=== PATIENT | female | born 1990 | race Caucasian/White ===

== ENCOUNTER 2019-10-04 13:26 | Emergency (ER) | payer OTHER, SELFPAY ==
[2019-10-04 13:38] VITALS: BP 125/72; PULSE 95; RESP 18; TEMP 37.1; O2SAT 99
--- NOTE | 2019-10-04 13:44 | ED.URI ---
HPI - URI/Sore Throat General Chief Complaint: Upper Respiratory Infection Stated Complaint: cm/chills/sore throat/body aches Time Seen by Provider: 10/04/19 13:45 Source: patient and RN notes reviewed History of Present Illness HPI Narrative: Patient is a 29-year-old female that presents the urgent care with complaints of headache, chills, sore throat, body aches. Patient states the sore throat started on Thursday and she woke up last night with severe chills and body aches. Patient states that she is taken 1 dose of DayQuil. Denies any nausea or vomiting. Denies any known contact with strep or flu. Patient is requesting to be tested for both influenza and strep. No other acute complaints. No acute distress noted. Patient read the plan of care. Related Data Home Medications Medication Instructions Recorded Confirmed levonorgestrel [Mirena] 1 device INTRAUTERINE ONCE 10/04/19 10/04/19 Allergies Allergy/AdvReac Type Severity Reaction Status Date / Time No Known Allergies Allergy Verified 10/04/19 13:45 Review of Systems Review of Systems: Narrative: CONSTITUTIONAL: Reports of chills EYES: Denies visual changes, redness, or discharge. ENT: Reports of sore throat CARDIOVASCULAR: Denies chest pain, palpitations, or edema. RESPIRATORY: Denies cough or dyspnea. GASTROINTESTINAL: Denies abdominal pain, nausea, vomiting, or diarrhea. GENITOURINARY: Denies dysuria or hematuria. SKIN: Denies rash or itching. MUSCULOSKELETAL: Denies back pain, joint pain; reports of body aches NEUROLOGIC: Denies headache, numbness, or weakness. All other systems reviewed are negative, except as documented in HPI. PMFSH Comments At the time of my signature, I reviewed and agree with the nursing past medical, surgical, social, and family history. There is no relevant family history pertinent to the patient complaint. Exam Narrative: Exam Narrative: GENERAL: This is a well-nourished, well-developed patient, in no apparent distress. HEAD: normocephalic, atraumatic. EYES: PERRL. Sclera clear/white. Vision is grossly intact. EARS: External ears normal, auditory canals clear and without drainage, bilateral cerumen noted, TMs normal without perforation. Hearing grossly intact. NOSE: External nose normal with no obvious nasal discharge, nares without redness, no rhinorrhea. THROAT: Mucous membranes moist, posterior pharynx clear. Mild postnasal drainage NECK: Neck supple, non-tender without lymphadenopathy, masses or thyromegaly. CARDIOVASCULAR: Regular rate and rhythm without murmurs, gallops, or rubs. RESPIRATORY: Clear to auscultation. Breath sounds equal bilaterally. No wheezes, rales, or rhonchi. SKIN: warm, intact with no suspicious lesions or rash, good texture and turgor. NEURO: awake, alert, and oriented to person, place and time. There were no obvious focal neurologic abnormalities. EXTREMITIES: No clubbing, cyanosis, or edema. Course Vital Signs Vital signs: Vital Signs Temperature 98.8 F 10/04/19 13:38 Pulse Rate 95 10/04/19 13:38 Respiratory Rate 18 10/04/19 13:38 Blood Pressure 125/72 10/04/19 13:38 Pulse Oximetry 99 10/04/19 13:38 Temperature 98.8 F 10/04/19 13:38 Pulse Rate 95 10/04/19 13:38 Respiratory Rate 18 10/04/19 13:38 Blood Pressure 125/72 10/04/19 13:38 Pulse Oximetry 99 10/04/19 13:38 Reviewed MDM - URI/Sore Throat MDM Narrative Medical decision making narrative: Reviewed lab results with the patient. She is aware that flu swab was negative. Aware that strep swab was negative. Educated patient on culture and will call within 72 hours if culture is positive and antibiotics are necessary. Advised the patient to treat symptoms with [id number]-[id number] medication such as Tylenol, ibuprofen, Claritin, Flonase. Increase water intake and rest. Use humidifier at night. Follow-up with PCP within 2 to 5 days or for worsening symptoms or failure to improve. Differential Diagnosis Differe
== END 2019-10-04 14:16 | disposition home or self-care (01) ==
PROVIDERS: Emergency Provider Nurse Practitioner Family; PCP Internal Medicine
DX: J06.9 Acute upper respiratory infection, unspecified (principal)
CPT/HCPCS: 87081; 87804; 87880; 99203; G0463

== ENCOUNTER 2021-03-10 16:50 | Emergency (ER) | payer OTHER, SELFPAY ==
--- NOTE | 2021-03-10 16:58 | ED.EAR ---
HPI - Ear Problem General Chief complaint: Ear Stated complaint: Ear History of Present Illness HPI Narrative: This is a 30 year comes in complaining of feeling fluid in her ear and some pain that is intermittent. Patient states that she had some occasional dizziness but denied it at this moment States that she has this fullness and onset of increased pain today Related Data Home Medications Medication Instructions Recorded Confirmed levonorgestrel [Mirena] 1 device INTRAUTERINE ONCE 10/04/19 03/10/21 Allergies Allergy/AdvReac Type Severity Reaction Status Date / Time No Known Allergies Allergy Verified 03/10/21 16:57 Review of Systems Review of Systems: Narrative: CONSTITUTIONAL: Denies fever, chills, or sweats. EYES: Denies visual changes, redness, or discharge. ENT: Denies rhinorrhea, congestion, sore throat, or reports otalgia. CARDIOVASCULAR:Denies chest pain, palpitations, or edema. RESPIRATORY: Denies cough or dyspnea. GASTROINTESTINAL: Denies abdominal pain, nausea, vomiting, or diarrhea. GENITOURINARY: Denies dysuria or hematuria. SKIN:[Denies rash or itching. MUSCULOSKELETAL:Denies back pain, joint pain, or myalgia. NEUROLOGIC: Denies headache, numbness, or weakness. PSYCHIATRIC:Denies anxiety or depression PMFSH Social History Social History Gender identity (if verbalized by the patient): Female Comments At time as signature, I have reviewed and agree with nursing past medical, social, surgical and family history. Please see nursing chart for further information. There is no relevant family history pertinent to the presenting complaint. Exam Narrative: Exam Narrative: GENERAL:Well-appearing, well-nourished, and in no acute distress. HEAD:Normocephalic, atraumatic. EYES: PERRLA and EOMI. ENT: Nares clear, no rhinorrhea or epistaxis. Mucous membranes moist.cerumen in bilateral ear with removal on right slight tm erythema of which i was able to see. NECK: Supple. CHEST: Clear to auscultation. No respiratory distress. HEART: Regular rate and rhythm. No murmur heard. Normal peripheral pulses. ABDOMEN: Soft, nontender, nondistended, normal active bowel sounds. EXTREMITIES: Normal range of motion. No edema. SKIN: Warm, dry, no rash. NEURO: No focal deficits. Alert and oriented x3. Procedures Ear Wax Removal Right Ear: Ear Wax Removal Date: 03/10/21 Ear Wax Removal Time: 17:17 Results: Re-examined: some cerumen remains TM Examination: TM(s) erythematous Ear Canal Exam: bleeding Noted Patient Tolerated Procedure: well Complications: no problems Technique: ear canal curetted Additional Comments: small amount of blood noted not currently bleeding removed as much as I could patient tolerated well she had already been placing drops in her ear. she was having some dizziness noted prior to coming in and feeling like she had fluid inside. Discharge Plan Discharge Clinical Impression: Otitis media Qualifiers: Otitis media type: unspecified Chronicity: acute Qualified Code(s): H66.90 - Otitis media, unspecified, unspecified ear Cerumen impaction Qualifiers: Laterality: bilateral Qualified Code(s): H61.23 - Impacted cerumen, bilateral Patient Disposition: Home, Self-Care Condition: Stable Instructions: Antibiotic Form, Ear Infection (GEN) Additional Instructions: avoid getting water in your ears for the next few days monitor for drainage Take all medication as directed Prescriptions: New amoxicillin 500 mg capsule 500 mg PO Q12H 7 Days Qty: 14 RF: 0 Zyrtec 10 mg capsule 10 mg PO DAILY PRN (Reason: allergy symptoms) Qty: 30 RF: 0 No Action Mirena 20 mcg/24 hours (5 yrs) 52 mg Intrauterine Device 1 device INTRAUTERINE ONCE RF: 0 Follow-up/Referrals: PHYSICIAN,PRODUCT TRAINER [Primary Care Provider] - Time of Disposition: 17:22
[2021-03-10 17:01] VITALS: BP 117/85; PULSE 67; RESP 18; TEMP 37.2; O2SAT 100
== END 2021-03-10 17:26 | disposition home or self-care (01) ==
PROVIDERS: Emergency Provider Nurse Practitioner Family
DX: H66.91 Otitis media, unspecified, right ear (principal); H61.23 Impacted cerumen, bilateral
CPT/HCPCS: 69210; 99213; G0463

== ENCOUNTER 2021-10-08 17:00 | Emergency (ER) | payer OTHER, SELFPAY ==
[2021-10-08 17:11] VITALS: BP 126/86; PULSE 66; RESP 18; TEMP 36.7; O2SAT 100
--- NOTE | 2021-10-08 17:33 | ED.EAR ---
HPI - Ear Problem General Chief complaint: Ear Stated complaint: Rt Ear Pain Time Seen by Provider: 10/08/21 17:25 Source: patient, family and RN notes reviewed Mode of arrival: ambulatory Limitations: no limitations History of Present Illness HPI Narrative: 31-year-old female who presents to [facility] with complaints of right ear pain for the past 2 days with also complaints of decreased hearing bilaterally. Patient reports she has had problems with earwax in the past and has had to have them cleansed at the doctor's office. Patient denies any shortness of breath, denies any nasal congestion or drainage, no fevers chills or sweats no body aches. Patient has had Covid vaccinations, no Booster, has not had Flu shot. MD Complaint: ear pain and decreased hearing Location: right ear Duration: constant Discharge from ear: Reports no Treatment prior to arrival: oral analgesic Related Data Home Medications Medication Instructions Recorded Confirmed levonorgestrel [Mirena] 1 device INTRAUTERINE ONCE 10/04/19 10/08/21 Allergies Allergy/AdvReac Type Severity Reaction Status Date / Time No Known Allergies Allergy Verified 10/08/21 17:18 Review of Systems Review of Systems: CONSTITUTIONAL: Denies fever, chills, or sweats. EYES: Denies visual changes, redness, or discharge. ENT: Denies rhinorrhea, congestion, sore throat, positive for right ear otalgia. CARDIOVASCULAR: Denies chest pain, palpitations, or edema. RESPIRATORY: Denies cough or dyspnea. GASTROINTESTINAL: Denies abdominal pain, nausea, vomiting, or diarrhea. GENITOURINARY: Denies dysuria or hematuria. SKIN: Denies rash or itching. MUSCULOSKELETAL: Denies back pain, joint pain, or myalgia. NEUROLOGIC: Denies headache, numbness, or weakness. PSYCHIATRIC: Denies anxiety or depression. All systems reviewed & are unremarkable except as noted in HPI and below PMFSH Past Medical History Medical History (Updated 10/08/21 @ 17:51 by Terri Riley NP) No pertinent past medical history Surgical History Surgical History (Updated 10/08/21 @ 17:53 by Terri Riley NP) No history of previous surgery Social History Social History (Updated 10/08/21 @ 17:51 by Terri Riley NP) Smoking status: Never smoker Alcohol intake: current Alcohol use details: Social alcohol use Substance use: never Living arrangements: with family Gender identity (if verbalized by the patient): Female Comments At time of signature, agree with nursing past medical, surgical, social and family history. There is no relevant family history pertinent to the presenting complaint Exam Narrative: GENERAL: Well-appearing, well-nourished, and in no acute distress. HEAD: Normocephalic, atraumatic. EYES: PERRLA and EOMI. ENT: Nares clear, no rhinorrhea or epistaxis. Mucous membranes moist. TM's impacted with cerumen bilaterally cleansed with peroxide and water with TM's noted to be normal with good light reflex throat pink, no lesions or exudates no tonsillar swelling NECK: Supple no lymphadenopathy. CHEST: Clear to auscultation. No respiratory distress. SaO2 100% on room air HEART: Regular rate and rhythm. No murmur heard. Normal peripheral pulses. ABDOMEN: Soft, nontender, nondistended, normal active bowel sounds. EXTREMITIES: Normal range of motion. No edema. SKIN: Warm, dry, no rash. NEURO: No focal deficits. Alert and oriented x3. Course Course Level of Care: Express Care Visit Vital Signs Vital signs: Vital Signs Temperature 36.7 C 10/08/21 17:11 Pulse Rate 66 10/08/21 17:11 Respiratory Rate 18 10/08/21 17:11 Blood Pressure 126/86 10/08/21 17:11 Pulse Oximetry 100 10/08/21 17:11 Temperature 36.7 C 10/08/21 17:11 Pulse Rate 66 10/08/21 17:11 Respiratory Rate 18 10/08/21 17:11 Blood Pressure 126/86 10/08/21 17:11 Pulse Oximetry 100 10/08/21 17:11 Procedures Ear Wax Removal Both Ears: Ear Wax Removal Date:
== END 2021-10-08 17:46 | disposition home or self-care (01) ==
PROVIDERS: Emergency Provider Registered Nurse
DX: H92.01 Otalgia, right ear (principal); H61.23 Impacted cerumen, bilateral
CPT/HCPCS: 69209; 99213; A9270; G0463

== ENCOUNTER → 2023-01-14 07:43 | Outpatient (CLI) | payer OTHER, SELFPAY ==
--- NOTE | ~2023-01-14 | MMUS_ITS ---
EXAMINATION: MM diagnostic mendy BI w [facility], US breast RT limited HISTORY: Pain in the upper right breast TECHNIQUE: Craniocaudal, mediolateral, and mediolateral oblique 3-D tomosynthesis images of the bremilka ts were performed and synthetic 2-D images were generated. CAD analysis was submitted and interpreted . High resolution limited right breast ultrasound was performed. COMPARISON: None, baseline BREAST PARENCHYMAL COMPOSITION: The breasts are heterogeneously dense, which may obscure small masses . FINDINGS: MAMMOGRAPHIC FINDINGS: No suspicious mass, calcification, or architectural distortion are identified in either breast to sug gest malignancy. No mammographic correlate is identified for the patient's reported right breast pain . ULTRASOUND: There is no evidence of focal abnormal solid or cystic mass in the vicinity of the patient's reported right breast pain. IMPRESSION: 1. No specific mammographic or sonographic correlate is identified for the patient's reported right b reast pain. Further evaluation at this time should be based on clinical assessment. Continued follow- up physical examination is recommended. 2. Recommend routine screening mammography beginning at age 40. BI-RADS Category 1: Negative Reviewed, dictated and finalized at location A. IMPRESSION: 1. No specific mammographic or sonographic correlate is identified for the stacey ent's reported right breast pain. Further evaluation at this time should be bas ed on clinical assessment. Continued follow-up physical examination is recommen ded. 2. Recommend routine screening mammography beginning at age 40. BI-RADS Category 1: Negative
== END ==
PROVIDERS: PCP Nurse Practitioner; Visit Provider Nurse Practitioner
DX: N64.4 Mastodynia (principal)
CPT/HCPCS: 76642; 77062; 77066; G0279

== ENCOUNTER 2024-02-24 09:52 | Emergency (ER) | payer OTHER, SELFPAY ==
[2024-02-24 10:06] VITALS: BP 123/63; PULSE 62; RESP 16; TEMP 36.5; O2SAT 100
--- NOTE | 2024-02-24 10:28 | ED.URI ---
HPI - URI/Sore Throat General Chief Complaint: Upper Respiratory Infection Stated Complaint: throat pain Time Seen by Provider: 02/24/24 09:55 Source: patient Mode of arrival: ambulatory Limitations: no limitations History of Present Illness HPI Narrative: [age] year female presents with complaint of scratchy throat since last night. No other symptoms. Patient states that her had similar symptoms and primary care physician gave him an antibiotic. Was not swabbed for strep throat. Patient wants to make sure that she also does not eating antibiotic, has family coming into town this weekend. All systems reviewed and negative except as noted above. Related Data Home Medications Medication Instructions Recorded Confirmed No Home Medications 02/24/24 02/24/24 Allergies Allergy/AdvReac Type Severity Reaction Status Date / Time No Known Allergies Allergy Verified 02/24/24 10:03 Review of Systems Review of Systems: CONSTITUTIONAL: Denies fever, chills, or sweats. EYES: Denies visual changes, redness, or discharge. ENT: Denies rhinorrhea, congestion . Reports sore throat. Denies otalgia. CARDIOVASCULAR: Denies chest pain, palpitations, or edema. RESPIRATORY: Denies cough or dyspnea. GASTROINTESTINAL: Denies abdominal pain, nausea, vomiting, or diarrhea. GENITOURINARY: Denies dysuria or hematuria. SKIN: Denies rash or itching. MUSCULOSKELETAL: Denies back pain, joint pain, or myalgia. NEUROLOGIC: Denies headache, numbness, or weakness. PSYCHIATRIC: Denies anxiety or depression. All other systems reviewed are negative, except as documented in HPI. PMFSH Past Medical History Medical History (Updated 02/24/24 @ 10:19 by Lashanda Rushing NP) No pertinent past medical history Surgical History Surgical History (Updated 10/08/21 @ 17:53 by Terri Riley NP) No history of previous surgery Social History Social History (Updated 10/08/21 @ 17:51 by Terri Riley NP) Smoking status: Never smoker Alcohol intake: current Alcohol use details: Social alcohol use Substance use: never Living arrangements: with family Gender identity (if verbalized by the patient): Female Comments At time of signature, agree with nursing past medical, surgical, social and family history. There is no relevant family history pertinent to the presenting complaint. Exam Narrative: GENERAL: This is a well-nourished, well-developed patient, in no apparent distress. HEAD: normocephalic, atraumatic. EYES: PERRL. Sclera clear/white. Vision is grossly intact. EARS: External ears normal, auditory canals clear and without drainage, TMs normal without perforation. Hearing grossly intact. NOSE: External nose normal with no obvious nasal discharge, nares without redness, no rhinorrhea. THROAT: Mucous membranes moist, clear postnasal drainage without erythema, swelling or exudates NECK: Neck supple, non-tender without lymphadenopathy, masses or thyromegaly. CARDIOVASCULAR: Regular rate and rhythm without murmurs, gallops, or rubs. RESPIRATORY: Clear to auscultation. Breath sounds equal bilaterally. No wheezes, rales, or rhonchi. SKIN: warm, Dry, intact with no suspicious lesions or rash, good texture and turgor. NEURO: awake, alert, and oriented to person, place and time. There were no obvious focal neurologic abnormalities. EXTREMITIES: No joint tenderness, effusion, or edema noted. Course Course Level of Care: Express Care Visit Vital Signs Vital signs: Vital Signs Temperature 36.5 C 02/24/24 10:06 Pulse Rate 62 02/24/24 10:06 Respiratory Rate 16 02/24/24 10:06 Blood Pressure 123/63 02/24/24 10:06 Pulse Oximetry 100 02/24/24 10:06 Oxygen Delivery Room Air 02/24/24 10:06 Temperature 36.5 C 02/24/24 10:06 Pulse Rate 62 02/24/24 10:06 Respiratory Rate 16 02/24/24 10:06 Blood Pressure 123/63 02/24/24 10:06 Pulse Oximetry 100 02/24/24 10:06 Oxy
== END 2024-02-24 10:22 | disposition home or self-care (01) ==
PROVIDERS: Emergency Provider Nurse Practitioner Family
DX: J02.9 Acute pharyngitis, unspecified (principal); R09.82 Postnasal drip
CPT/HCPCS: 87081; 87880; 99213; G0463